=== PATIENT | male | born 1955 | race Caucasian/White ===

== ENCOUNTER 2018-08-17 07:57 | Day surgery (SDC) | payer MEDICARE, BC ==
[2018-08-13 13:01] VITALS: BMI 38.0
[~2018-08-17 07:57] MED LIST: LACTATED RINGERS 1,000 ML IV SCH
[2018-08-17 08:43] VITALS: TEMP 98.4
[2018-08-17] MEDS ORDERED: LIDOCAINE 1% 20 ML VIAL (10MG/ML) FOR IV START INTRADERMA ONE (08:54)
[2018-08-17 09:00] LABS: Glucose,Whole Blood 110 mg/dL (75-99)
[2018-08-17] MEDS ORDERED: KETAMINE 10 MG/ML 20 ML VIAL ONE (09:17)
[2018-08-17] MEDS ORDERED: PROPOFOL 10 MG/ML 20 ML VIAL IV ONE (09:17)
--- NOTE | 2018-08-17 09:19 | P.GSHP ---
History of Present Illness H&P Date: 08/17/18 Chief Complaint: Anal bleeding, fissure This a 63-year-old male who presents today for colonoscopy. Patient had some issues with anal bleeding and an anal fissure. Past Medical History Past Medical History: Cancer, Diabetes Mellitus, Hyperlipidemia, Hypertension, Osteoarthritis (OA), Thyroid Disorder Additional Past Medical History / Comment(s): TESTICULAR CANCER, GLAUCOMA History of Any Multi-Drug Resistant Organisms: None Reported Additional Past Surgical History / Comment(s): COLONOSCOPY, RIGHT SHOULDER, TESTICLE SURGERY FOR CANCER WITH IMPLANT, KIDNEY STONE SURGERY Past Anesthesia/Blood Transfusion Reactions: No Reported Reaction Smoking Status: Never smoker - Past Family History Brother(s) Family Medical History: Cancer Medications and Allergies Home Medications Medication Instructions Recorded Confirmed Type Aspirin 81 mg PO DAILY 08/13/18 08/17/18 History Levothyroxine Sodium [Synthroid] 175 mcg PO DAILY 08/13/18 08/17/18 History Losartan/Hydrochlorothiazide 1 each PO DAILY 08/13/18 08/17/18 History [Losartan-Hctz 100-25 mg Tab] Pioglitazone [Actos] 45 mg PO HS 08/13/18 08/17/18 History Psyllium Husk (with Sugar) 1 tsp PO DAILY 08/13/18 08/17/18 History [Metamucil Powder] Simvastatin [Zocor] 40 mg PO HS 08/13/18 08/17/18 History Travoprost [Travatan Z 0.004%] 1 drop BOTH EYES HS 08/13/18 08/17/18 History sitaGLIPtin PHOSPHATE [Januvia] 100 mg PO DAILY 08/13/18 08/17/18 History Insulin Glargine [Lantus] 58 unit SQ DAILY 08/17/18 08/17/18 History Allergies Allergy/AdvReac Type Severity Reaction Status Date / Time No Known Allergies Allergy Verified 08/17/18 08:42 Surgical - Exam Vital Signs Temp Pulse Resp BP Pulse Ox 98.4 F 89 16 140/70 98 08/17/18 08:32 08/17/18 08:32 08/17/18 08:32 08/17/18 08:32 08/17/18 08:32 - General well developed, no distress - Eyes PERRL - ENT normal pinna - Neck no masses - Respiratory normal expansion - Cardiovascular Rhythm: regular - Abdomen Abdomen: soft, non tender Results - Labs Abnormal Lab Results - Last 24 Hours (Table) 08/17/18 Range/Units 08:51 POC Glucose (mg/dL) 110 H (75-99) mg/dL Assessment and Plan Assessment: Anal bleeding, anal fissure. We'll perform colonoscopy.
--- NOTE | 2018-08-17 09:34 | P.OP ---
Date of Procedure: 08/17/18 Preoperative Diagnosis: Anal fissure Rectal bleeding Postoperative Diagnosis: Anal fissure. Internal hemorrhoids Procedure(s) Performed: Colonoscopy Anesthesia: MAC Surgeon: Brendon Page Pathology: none sent Condition: stable Disposition: PACU Description of Procedure: The patient's placed on the endoscopy table in the lateral position. He received IV sedation. Digital rectal exam was performed which revealed a posterior midline fissure and some internal hemorrhoids. The prostate was symmetrical without nodules. The flexible colonoscope was then placed patient anus and passed throughout the entire colon. The ileocecal valve was visualized. The cecum, ascending and transverse colon appeared normal. The descending and sigmoid colon appeared normal. Scope summer back the rectum this appeared normal. Scope was withdrawn through the anus and there was a posterior midline fissure and internal hemorrhoids noted. There was some bleeding from the fissure. The scope was withdrawn for patient.
[2018-08-17 09:40] VITALS: PULSE 77
[2018-08-17] MEDS ORDERED: ACETAMINOPHEN TAB 500 MG TAB PO ONE (09:53)
[2018-08-17 10:14] VITALS: BP 170/77; RESP 18
== END 2018-08-17 10:37 | disposition home or self-care (01) ==
LOC: ORWHC2ENDO 07:57
PROVIDERS: ATTEND Surgery
DX: K60.2 Anal fissure, unspecified (principal); K64.8 Other hemorrhoids; K62.5 Hemorrhage of anus and rectum; E11.9 Type 2 diabetes mellitus without complications; E07.9 Disorder of thyroid, unspecified; E78.5 Hyperlipidemia, unspecified; I10 Essential (primary) hypertension; M19.90 Unspecified osteoarthritis, unspecified site; Z79.4 Long term (current) use of insulin; Z79.82 Long term (current) use of aspirin; Z87.442 Personal history of urinary calculi; Z79.890 Hormone replacement therapy; Z85.47 Personal history of malignant neoplasm of testis; Z90.79 Acquired absence of other genital organ(s); Z79.899 Other long term (current) drug therapy
CPT/HCPCS: 45378; J2704

== ENCOUNTER 2023-07-09 17:50 | Emergency (ER) | payer BC, MEDICARE ==
[2023-07-09 18:18] VITALS: RESP 20; TEMP 98.5
[2023-07-09] MEDS ORDERED: SODIUM CHLORIDE 0.9% 1,000 ML IV STA (21:13)
--- NOTE | 2023-07-09 21:15 | ED ---
General Adult HPI - General Chief complaint: Weakness Stated complaint: Abd pain Time Seen by Provider: 07/09/23 21:00 Source: patient Mode of arrival: wheelchair Limitations: no limitations - History of Present Illness Initial comments: Dictation was produced using [employer] (f[employer]) dictation software. please excuse any grammatical, word or spelling errors. Chief Complaint: 68-year-old male presents with full body cramping History of Present Illness: And is a 68-year-old male who has past history of diabetes, dyslipidemia hypertension. For the last 7 days he's been having total body cramping. States that his muscles were cramping intermittently on multiple occasions throughout the day. These cramping sensations would last for several seconds and slowly relieved. Patient denies any medication changes. Denies any other symptoms. No fever chills or night sweats. Patient has not had any diarrhea or vomiting. Cramping would be to his hands and his arms and legs his Case feet and even his abdomen. The ROS documented in this emergency department record has been reviewed and confirmed by me. Those systems with pertinent positive or negative responses have been documented in the HPI. All other systems are other negative and/or noncontributory. - Related Data Home Medications Medication Instructions Recorded Confirmed Aspirin 81 mg PO DAILY 08/13/18 08/17/18 Levothyroxine Sodium [Synthroid] 175 mcg PO DAILY 08/13/18 08/17/18 Losartan/Hydrochlorothiazide 1 each PO DAILY 08/13/18 08/17/18 [Losartan-Hctz 100-25 mg Tab] Pioglitazone [Actos] 45 mg PO HS 08/13/18 08/17/18 Psyllium Husk (with Sugar) 1 tsp PO DAILY 08/13/18 08/17/18 [Metamucil Powder] Simvastatin [Zocor] 40 mg PO HS 08/13/18 08/17/18 Travoprost [Travatan Z 0.004%] 1 drop BOTH EYES HS 08/13/18 08/17/18 sitaGLIPtin PHOSPHATE [Januvia] 100 mg PO DAILY 08/13/18 08/17/18 Insulin Glargine [Lantus] 58 unit SQ DAILY 08/17/18 08/17/18 Allergies Allergy/AdvReac Type Severity Reaction Status Date / Time No Known Allergies Allergy Verified 11/01/23 18:06 Review of Systems ROS Statement: Those systems with pertinent positive or pertinent negative responses have been documented in the HPI. ROS Other: All systems not noted in ROS Statement are negative. Past Medical History Past Medical History: Cancer, Diabetes Mellitus, Hyperlipidemia, Hypertension, Osteoarthritis (OA), Thyroid Disorder Additional Past Medical History / Comment(s): TESTICULAR CANCER, GLAUCOMA History of Any Multi-Drug Resistant Organisms: None Reported Additional Past Surgical History / Comment(s): COLONOSCOPY, RIGHT SHOULDER, TESTICLE SURGERY FOR CANCER WITH IMPLANT, KIDNEY STONE SURGERY Past Anesthesia/Blood Transfusion Reactions: No Reported Reaction Past Psychological History: No Psychological Hx Reported Past Alcohol Use History: None Reported Past Drug Use History: None Reported - Past Family History Brother(s) Family Medical History: Cancer General Exam - General Exam Comments Initial Comments: PHYSICAL EXAM: General Impression: Alert and oriented x3, not in acute distress HEENT: Normocephalic atraumatic, extra-ocular movements intact, pupils equal and reactive to light bilaterally, mucous membranes moist. Cardiovascular: Heart regular rate and rhythm Chest: Able to complete full sentences, no retractions, no tachypnea Abdomen: abdomen soft, non-tender, non-distended, no organomegaly Musculoskeletal: Pulses present and equal in all extremities, no peripheral edema Motor: no focal deficits noted Neurological: CN II-XII grossly intact, no focal motor or sensory deficits noted Skin: Intact with no visualized rashes Psych: Normal affect and mood Limitations: no limitations Course Vital Signs 07/09/23 18:00 Temperature 98.5 F Pulse Rate 91 Respiratory 20 Rate Blood Pressure 150/80 O2 Sat by Pulse 94 L Oximetry Medical Decision Making - Medical Decision Making Was pt. sent in by a medical professional or institution (, PA, RETAIL SALES REPRESENTATIVE, urgent care, hospital, or assisted...) When possible be specific @ -No Did you speak to anyone other than the patient for history (EMS, parent, family, police, friend...)? What history was obtained from this source @ -No Did you review nursing and triage notes (agree or disagree)? Why? @ -I reviewed and agree with nursing and triage notes Were old charts reviewed (outside hosp., previous admission, EMS record, old EKG, old radiological studies, urgent care reports/EKG's, assisted records)? Report findings @ -No old charts were reviewed Differential Diagnosis (chest pain, altered mental status, abdominal pain women, abdominal pain men, vaginal bleeding, musculoskeletal, weakness, fever, dyspnea, syncope, headache, dizziness, GI bleed, back pain, seizure, CVA, palpatations, mental health)? @ -not applicable EKG interpreted by me (3pts min.). @ -None done X-rays interpreted by me (1pt min.). @ -None done CT interpreted by me (1pt min.). @ -None done U/S interpreted by me (1pt. min.). @ -None done What testing was considered but not performed or refused? (CT, X-rays, U/S, labs)? Why? @ -None What meds were considered but not given or refused? Why? @ -None Did you discuss the management of the patient with other professionals (professionals i.e. , PA, RETAIL SALES REPRESENTATIVE, lab, RT, psych nurse, social service liaison, certified credit counselor, teacher, medical information officer, patient case manager)? Give summary @ -No Was smoking cessation discussed for >3mins.? @ -No Was critical care preformed (if so, how long)? @ -No Were there social determinants of health that impacted care today? How? (Homelessness, low income, unemployed, alcoholism, drug addiction, transportation, low edu. Level, literacy, decrease access to med. care, [facility], rehab)? @ -No Was there de-escalation of care discussed even if they declined (Discuss DNR or withdrawal of care, Hospice)? DNR status @ -No What co-morbidities impacted this encounter? (DM, HTN, Smoking, COPD, CAD, Cancer, CVA, ARF, Chemo, Hep., AIDS, mental health diagnosis, sleep apnea, morbid obesity)? @ -None Was patient admitted / discharged? Hospital course, mention meds given and route, prescriptions, significant lab abnormalities, going to OR and other [facility] [place] info. @ -68 Year-old male with some comorbidities presents to the emergency department for 1 week of total body cramping. Vital signs are stable. Patient is well-appearing at bedside. Physical examination is benign. Laboratory evaluation is unremarkable except for some likely mild dehydration with elevated BUN to creatinine ratio. Patient given IV fluids. Monitor the emergency Department for proximally 6 hours. given some IV fluids. Discharge advised follow-up with primary care doctor. Undiagnosed new problem with uncertain prognosis? @ -No Drug Therapy requiring intensive monitoring for toxicity (Heparin, Nitro, Insulin, Cardizem)? @ -No Were any procedures done? @ -No Diagnosis/symptom? Acute, or Chronic, or Acute on Chronic? Uncomplicated (without systemic symptoms) or Complicated (systemic symptoms)? @ -Musculus skeletal cramping Side effects of treatment? @ -No Exacerbation, Progression, or Severe Exacerbation? @ -No Poses a threat to life or bodily function? How? (Chest pain, [place], [place], pneumonia, PE, COPD, DKA, ARF, appy, cholecystitis, CVA, Diverticulitis, Homicidal, Suicidal, threat to staff... and all critical care pts) @ -No - Lab Data Result diagrams: 07/09/23 21:38 07/09/23 21:38 Lab Results 07/09/23 07/09/23 Range/Units 21:38 21:38 WBC 7.6 (3.8-10.6) k/uL RBC 5.04 (4.30-5.90) m/uL Hgb 14.3 (13.0-17.5) gm/dL Hct 43.8 (39.0-53.0) % MCV 86.8 (80.0-100.0) fL MCH 28.4 (25.0-35.0) pg MCHC 32.8 (31.0-37.0) g/dL RDW 14.1 (11.5-15.5) % Plt Count 197 (150-450) k/uL MPV 9.3 Neutrophils % 66 % Lymphocytes % 23 % Monocytes % 8 % Eosinophils % 1 % Basophils % 0 % Neutrophils # 5.0 (1.3-7.7) k/uL Lymphocytes # 1.7 (1.0-4.8) k/uL Monocytes # 0.6 (0-1.0) k/uL Eosinophils # 0.1 (0-0.7) k/uL Basophils # 0.0 (0-0.2) k/uL Sodium 137 (137-145) mmol/L Potassium 4.4 (3.5-5.1) mmol/L Chloride 101 (98-107) mmol/L Carbon Dioxide 26 (22-30) mmol/L Anion Gap 10 mmol/L BUN 26 H (9-20) mg/dL Creatinine 1.04 (0.66-1.25) mg/dL Est GFR (CKD-EPI)AfAm 84 (>60 ml/min/1.73 sqM) Est GFR (CKD-EPI)NonAf 73 (>60 ml/min/1.73 sqM) Glucose 123 H (74-99) mg/dL Calcium 9.6 (8.4-10.2) mg/dL Ionized Calcium Erma 4.9 (4.5-5.3) mg/dL Magnesium 1.9 (1.6-2.3) mg/dL Total Bilirubin 0.6 (0.2-1.3) mg/dL AST 28 (17-59) U/L ALT 36 (4-49) U/L Alkaline Phosphatase 75 (38-126) U/L Creatine Kinase 268 H (55-170) U/L Total Protein 7.0 (6.3-8.2) g/dL Albumin 4.2 (3.5-5.0) g/dL Disposition Clinical Impression: Muscle cramping Disposition: HOME SELF-CARE Condition: Good Instructions (If sedation given, give patient instructions): Dehydration (ED) Is patient prescribed a controlled substance at d/c from ED?: No Referrals: Josiah Harrison MD [Primary Care Provider] - 1-2 days Time of Disposition: 00:03
[2023-07-09 22:39] LABS: Basophils % (A) 0 %; Eosinophils # (A) 0.1 k/uL (0-0.7); Eosinophils % (A) 1 %; HCT 43.8 % (39.0-53.0); HGB 14.3 gm/dL (13.0-17.5); Lymphocytes # (A) 1.7 k/uL (1.0-4.8); Lymphocytes % (A) 23 %; MCH 28.4 pg (25.0-35.0); MCHC 32.8 g/dL (31.0-37.0); MCV 86.8 fL (80.0-100.0); Mean Platelet Volume 9.3; Monocytes # (A) 0.6 k/uL (0-1.0); Monocytes % (A) 8 %; Neutrophils % (A) 66 %; Platelet Count 197 k/uL (150-450); RBC 5.04 m/uL (4.30-5.90); RDW 14.1 % (11.5-15.5); WBC 7.6 k/uL (3.8-10.6)
[2023-07-09 22:45] LABS: Ionized Calcium 4.9 mg/dL (4.5-5.3)
[2023-07-09 22:49] LABS: ALT 36 U/L (4-49); AST 28 U/L (17-59); African American GFR (CKD) 84 (>60 ml/min/1.73 sqM); Albumin 4.2 g/dL (3.5-5.0); Alkaline Phosphatase 75 U/L (38-126); Anion Gap 10 mmol/L; Blood Urea Nitrogen 26 mg/dL (9-20); Calcium 9.6 mg/dL (8.4-10.2); Carbon Dioxide 26 mmol/L (22-30); Chloride 101 mmol/L (98-107); Creatine Kinase 268 U/L (55-170); Glucose 123 mg/dL (74-99); Magnesium 1.9 mg/dL (1.6-2.3); Non-African American GFR(CKD) 73 (>60 ml/min/1.73 sqM); Potassium 4.4 mmol/L (3.5-5.1); Sodium 137 mmol/L (137-145); Total Bilirubin 0.6 mg/dL (0.2-1.3)
[2023-07-10 00:49] VITALS: BP 132/75; PULSE 88
== END 2023-07-10 00:25 | disposition home or self-care (01) ==
LOC: EC 17:50
DX: R25.2 Cramp and spasm (principal); E11.9 Type 2 diabetes mellitus without complications; I10 Essential (primary) hypertension; E78.5 Hyperlipidemia, unspecified; M19.90 Unspecified osteoarthritis, unspecified site; E07.9 Disorder of thyroid, unspecified; Z79.4 Long term (current) use of insulin; Z79.84 Long term (current) use of oral hypoglycemic drugs; Z79.82 Long term (current) use of aspirin; Z79.890 Hormone replacement therapy; Z79.899 Other long term (current) drug therapy
CPT/HCPCS: 36415; 80053; 82330; 82550; 83735; 85025; 96360; 99285

== ENCOUNTER → 2023-11-22 | Outpatient (CLI) | payer MEDICARE ==
--- NOTE | 2023-11-22 21:31 | MR ---
EXAMINATION TYPE: MR Prostate wo/w con DATE OF EXAM: 11/22/2023 8:25 AM COMPARISON: None. CLINICAL INDICATION:Male, 68 years old with history of R97.20 ELEVATED PROSTATE SPECIFIC ANTIGEN; Xin vated PSA, Hx testicular cancer 1985 TECHNIQUE: Multi-planar, multi-sequence imaging of the pelvis is performed prior to and following the uncomplicated administration of bolus intravenous gadolinium. CONTRAST: 12.5 Gadavist Interpretive Criteria: PI-RADS v2.1 SERUM PSA: PSA 11/06/2023 5.02 PSA 09/09/2023 4.06 PSA 05/23/2022 3.00 SURGICAL PATHOLOGY: No data available. FINDINGS: Prostatic dimensions: 4.8 x 5.7 x 4.7 cm. Ellipsoid Volume:67.33 (PSA density=0.07 ng/mL/mL) CENTRAL GLAND (Central and Transition Zones/CZ+TZ): Multiple bilateral, heterogenous appearing hypertrophic stromal nodules, without suspicious lesion. M edian lobe hypertrophy with protrusion into the base of the bladder. (PI-RADS 2) PERIPHERAL ZONE (PZ): Bilateral linear, indistinct wedgelike areas of low ADC, and low T2 signal, No evidence of masslike a bnormality, or localized perfusional hypervascularity, to further suggest a focus of clinically signi ficant prostate cancer. (PI-RADS 2) SEMINAL VESICLES (SV): Symmetric and unremarkable. PERIPROSTATIC TISSUES: Unremarkable. LYMPH NODES: No enlarged pelvic lymph node. REMAINING PELVIS: Bladder wall is within normal limits given distention. No abnormal free or organized intrapelvic fluid collection. No pathologic bowel dilation or mural thickening. No hernia visualized OSSEOUS STRUCTURES: No suspicious osseous abnormality. IMPRESSION: 1. No specific features for high-risk prostate cancer. Maximum PI-RADS score: 2. 2. Moderate BPH, estimated gland volume 67.33 mL.
== END | disposition home or self-care (01) ==
LOC: RADMRIMAIN 07:27
PROVIDERS: ATTEND Urology
DX: N40.0 Benign prostatic hyperplasia without lower urinary tract symptoms (principal); R97.20 Elevated prostate specific antigen [PSA]
CPT/HCPCS: 72197; A9585